=== PATIENT | female | born 1980 ===

== ENCOUNTER → 2023-09-07 09:26 | Outpatient (CLI) | payer OTHER, SELFPAY ==
--- NOTE | ~2023-09-07 | MR_ITS ---
EXAMINATION: MR knee LT wo con DATE: 09/07/2023 10:31 INDICATION: Meniscal tear and advanced chondrosis presenting with increased medial knee pain. TECHNIQUE: Magnetic resonance imaging (MRI) of the left knee was performed without intravenous contra st. Sequences included coronal PD-weighted FSE, coronal PD-weighted FS FSE, sagittal T2-weighted FSE , sagittal PD-weighted FS FSE and axial PD weighted fat saturated FSE. COMPARISON: None. FINDINGS: Medial compartment: The posterior horn of the medial meniscus is small which may reflect changes of prior partial discect salina kidney provided history of prior surgery. There is medial extrusion of the medial meniscal body. There is linear increased signal extending to contact the superior and inferior articular surface of the remaining posterior horn and the superior articular surface near the free edge of the posterior b patric of the medial meniscus consistent with complex tear. The increased signal is less than fluid inte nsity and could not exclude that this represents a prior repair tear although given the configuration of the pelvis would be unlikely. Correlate with details of the surgical history and if indicated thi s could be more definitively assessed with contrast enhanced MR arthrogram. Deep chondral ulceration along the medial half of the medial tibial plateau with underlying cortical irregularity and edema-li ke signal change. The configuration of the cortical contour to the medial meniscus suggests an old he aled fracture with associated subtle tubular screw tracks suggesting prior internal fixation. Again w ould correlate with clinical/surgical history. Additional deep chondral ulceration with underlying vizcarra bcortical edema-like signal change and minimal cortical regularity along the medial margin of the ant erior to central weightbearing medial femoral condyle. Lateral compartment: Lateral meniscus is normal. Mild partial-thickness cartilage loss with some chondral surface regulari ty along the anterior weightbearing lateral femoral condyle. Mild chondral surface irregularity and h eterogeneous cartilage signal shoulder the intercondylar eminence at the posterior medial aspect of t he lateral tibial plateau. Cartilage at the lateral tibial plateau appears otherwise relatively prese rved. Patellofemoral compartment: Deep chondral fissuring at the medial patellar facet with mild underlying edema-like signal change. D eep chondral fissuring without degenerative subchondral changes. The trochlear groove at the medial a spect of the lateral trochlea. Additional partial-thickness chondral ulceration or fissuring at the c entral aspect of the medial trochlea. Ligaments and tendons: Anterior and posterior cruciate ligaments are normal. The medial collateral ligament and fibular matt ateral ligament complex are normal. Mild tendinopathy at the patellar insertion of the proximal evans lar tendon and lateral aspect of the distal quadriceps tendon. The visualized medial and lateral hams tring tendons as well as the iliotibial band are normal. Fluid: Physiologic amount of fluid in the joint space. No loose osteochondral bodies identified. Osseous/other: Bone alignment is normal. No acute fracture. Suggestion of prior internal fixation of an old healed m edial tibial plateau fracture as detailed above. No pathologic marrow replacing process. Scarring at the medial and lateral aspect of Hoffa's fat pad suggesting prior arthroscopy. IMPRESSION: 1. Complex tear of the posterior horn and posterior body of the medial meniscus suggesting prior part ial meniscectomy of the small posterior horn. Cannot excluded at this represents a repaired meniscal tear although given the configuration is considered unlikely. Correlate with clinical details of prio r surgical history and could consider further evaluation with MR arthrogram as clinically indicated. 2. Moderate medial compartment and mi
== END ==
DX: S83.232A Complex tear of medial meniscus, current injury, left knee, initial encounter (principal); X58.XXXA Exposure to other specified factors, initial encounter; M17.12 Unilateral primary osteoarthritis, left knee
CPT/HCPCS: 73721